=== PATIENT | male | born 1990 | race Caucasian/White ===

== ENCOUNTER 2019-01-04 02:48 | Emergency (ER) | payer OTHER ==
[~2019-01-04] VITALS: Ht 185.4 cm; Wt 81.6 kg
[2019-01-04] MEDS ORDERED: KETO10TA2 PO (05:52)
[2019-01-04] MEDS ORDERED: CEPHALEXIN500 MG PO (05:52)
== END 2019-01-04 20:27 | disposition home or self-care (01) ==
LOC: ER 02:48
DX: S61.227A Laceration with foreign body of left little finger without damage to nail, initial encounter (principal); W45.8XXA Other foreign body or object entering through skin, initial encounter; Y93.89 Activity, other specified; Y92.89 Other specified places as the place of occurrence of the external cause; Y99.8 Other external cause status